=== PATIENT | male | born 1980 | race Caucasian/White ===

== ENCOUNTER → 2020-09-15 | Outpatient (CLI) | payer BC ==
[~2020-09-15] MED LIST: ACETAMINOPHEN325 M1; FISHOIL; MULTIVITAMINS; SIMVASTATIN40 MG; ZANTAC
== END ==
LOC: MRI 09:01
PROVIDERS: ATTEND Nurse Practitioner
DX: E34.8 Other specified endocrine disorders (principal); H53.8 Other visual disturbances; R42 Dizziness and giddiness; R26.89 Other abnormalities of gait and mobility; G44.001 Cluster headache syndrome, unspecified, intractable; Z86.79 Personal history of other diseases of the circulatory system

== ENCOUNTER → 2020-11-18 | Outpatient (CLI) | payer BC ==
--- NOTE | 2020-11-24 11:40 | SLE ---
[facility] [place] [address] POLYSOMNOGRAPHY STUDY Name: ARGELIA ARIAS Room #: REG [facility]#: [id number] Admission: 11/18/20 Attend Phys: Deshaun Jerome MD Discharge: Date of : 84 Report #: [id number] THIS REPORT FOR: cc: Cyndi Collado DNP, Mary E. DNP Khan, Aman U. MD ~ DOC #: [id number] cc: MD Deshaun Childs MD DATE OF SERVICE: 11/18/2020 SLEEP STUDY ATTENDING PHYSICIAN: Dr. Cyndi Collado. The patient is 40 years old who was recently diagnosed with severe sleep apnea at an AHI of 35 per hour by home sleep study. The patient was referred for an in-lab CPAP titration study. During the night study, the patient spent 405 minutes in bed and slept for 321 minutes with a sleep efficiency of 79.5%. Sleep latency was 14.2 minutes with a REM latency of 5 minutes, which is short. Sleep architecture showed normal stage I sleep, slightly increased stage II sleep, normal N3 sleep and normal REM sleep. EKG monitoring revealed an average heart rate of 65 beats per minute. No sustained arrhythmias observed. No significant PLMs seen. The patient was started on CPAP at a pressure of 5 cm of water and titrated to 10 cm of water. At the final pressure, the patient slept for 275 minutes. The patient had supine as well as REM sleep. The patient's AHI was reduced to 0.7 per hour and oxygen saturation remained above 89%. IMPRESSION: 1. Severe obstructive sleep apnea diagnosed by previous home sleep study. 2. No clinically significant periodic limb movements. RECOMMENDATIONS: 1. CPAP at 10 cm of water completely eliminated the patient's sleep apnea and should be used on a nightly basis. 2. Follow up in four to six weeks to assess compliance with CPAP and to document clinical improvement. 3. Weight loss is advised. [facility] [address] [place] [address] POLYSOMNOGRAPHY STUDY Name: ARGELIA ARIAS Room #: REG [facility]#: [id number] Admission: 11/18/20 Attend Phys: Deshaun Jerome MD Discharge: Date of : 84 Report #: [id number] 4. Avoid FLOOR [employer] depressants. 5. Cautioned regarding driving until symptoms of sleep apnea resolve with the use of CPAP. Deshaun Jerome MD AUK/DHI <ELECTRONICALLY SIGNED> By: Deshaun Jerome MD 11/24/20 1140 [id number] Deshaun Jerome MD /nt
== END ==
LOC: SLEEPLAB 11:24
PROVIDERS: ATTEND Internal Medicine Critical Care Medicine
DX: G47.33 Obstructive sleep apnea (adult) (pediatric) (principal); R06.83 Snoring; E66.9 Obesity, unspecified; Z68.30 Body mass index [BMI] 30.0-30.9, adult